=== PATIENT | female | born 1980 | race Caucasian/White ===

== ENCOUNTER 2019-10-27 07:27 | Observation (INO) ==
--- NOTE | 2019-10-22 12:14 | XRay Report ---
HISTORY: Preop for cholecystectomy FINDINGS: The lungs are clear. The heart, mediastinum, juan and pleura are normal. IMPRESSION: Normal chest. Interpreted and Authenticated by: Tapan Blanton 10/22/19
[2019-10-22 13:41] LABS: Basophils # (Auto) 0.06 K/mcL (0.00-0.30); Basophils % (Auto) 0.7 % (0.0-2.0); Eosinophils # (Auto) 0.08 K/mcL (0.00-0.70); Eosinophils % (Auto) 0.9 % (0.0-7.0); Granulocytes % (Auto) 44.8 % (38.0-78.0); Hematocrit 35.7 % (34.1-44.9); Hemoglobin 11.9 g/dL (11.2-15.7); Lymphocytes # (Auto) 3.77 K/mcL (1.50-4.80); Mean Cell Volume 93.2 fL (80.0-100.0); Mean Corpuscular HGB Conc 33.3 g/dL (31.0-36.0); Monocytes # (Auto) 1.16 K/mcL (0.10-0.90); Monocytes % (Auto) 12.6 % (1.0-12.0); Platelet Count 354 K/mcL (140-440); RBC 3.83 M/mcL (3.59-5.38); Red Cell Distribution Width 14.3 % (11.5-14.5); WBC 9.2 K/mcL (4.50-11.00)
[2019-10-22 13:45] LABS: ALT/SGPT 87 U/l (0-40); AST/SGOT 49 U/l (0-37); Albumin/Globulin Ratio 1.1 (1.0-2.3); Alkaline Phosphatase 210 U/L (39-117); Bilirubin,Total 0.8 mg/dL (0.0-1.0); Blood Urea Nitrogen 9 mg/dl (6-20); Calcium 8.2 mg/dl (8.6-10.4); Carbon Dioxide 25 mmol/L (22-30); Globulin 2.7 gm/dL (2.2-3.7); Glomerular Filtration Rate 108; Glucose 93 mg/dL (70-105)
[2019-10-22 13:51] LABS: Chloride 92 mmol/L (96-108)
[2019-10-22 13:53] LABS: INR 1.6 (0.9-1.1); Prothrombin Time 19.5 sec (11.9-14.5)
[~2019-10-27 07:27] MED LIST: ceFAZolin 2 GM in DEXTROSE 5% IN WATER 50 ML IV SCH
[2019-10-27] MEDS ORDERED: KETAMINE 100 MG/ML ML IV ONE (09:20)
[2019-10-27] MEDS ORDERED: METOPROLOL TARTRATE 5 MG/5 ML VIAL IV ONE (09:20)
[2019-10-27] MEDS ORDERED: VERAPAMIL 2.5 MG/ML VIAL IV ONE (09:20)
[2019-10-27] MEDS ORDERED: fentaNYL 250 MCG/5 ML VIAL IV ONE (09:20)
[2019-10-27] MEDS ORDERED: LIDOCAINE HCL/PF 100 MG/5 ML SYRINGE IV ONE (09:20)
[2019-10-27] MEDS ORDERED: DEXAMETHASONE 10 MG/ML VIAL IV ONE (09:20)
[2019-10-27] MEDS ORDERED: ONDANSETRON 4 MG/2 ML VIAL IV ONE (09:20)
[2019-10-27] MEDS ORDERED: SUGAMMADEX SODIUM 200 MG/2 ML VIAL IV ONE (09:20)
[2019-10-27] MEDS ORDERED: PROPOFOL 200 MG/20 ML VIAL IV ONE (09:20)
[2019-10-27] MEDS ORDERED: KETOROLAC 30 MG/ML VIAL IV PRN (09:57)
[2019-10-27] MEDS ORDERED: diphenhydrAMINE 50 MG/ML VIAL IV PRN (09:57)
[2019-10-27] MEDS ORDERED: LACTATED RINGERS 250 ML IV PRN (09:57)
[2019-10-27] MEDS ORDERED: ONDANSETRON 4 MG/2 ML VIAL IV PRN (09:57)
[2019-10-27] MEDS ORDERED: HYDROmorphone 0.5 MG/0.5 ML SYRINGE IV PRN (09:57)
[2019-10-27] MEDS ORDERED: IPRATROPIUM/ALBUTEROL 3 ML AMPUL.NEB NEB PRN (09:57)
[2019-10-27] MEDS ORDERED: MEPERIDINE 25 MG/ML SYRINGE IV PRN (09:57)
[2019-10-27] MEDS ORDERED: PROMETHAZINE 25 MG/ML VIAL IV PRN (09:57)
[2019-10-27] MEDS ORDERED: NALOXONE HCL 0.4 MG/ML VIAL IV PRN (09:57)
[2019-10-27] MEDS ORDERED: LORazepam 2 MG/ML VIAL IV PRN (09:57)
[2019-10-27] MEDS ORDERED: LACTATED RINGERS 1,000 ML IV SCH (10:00)
--- NOTE | 2019-10-27 10:24 | Brief Operative Note ---
Brief Operative Note Date of procedure: 10/27/19 Pre-op diagnosis: cholelithiasis with cholecystitis Post-op diagnosis: other (cholelithiasis with cholecystitis) Procedure: laparoscopic cholecystectomy Grafts/Implants: No Anesthesia: GETA Findings: edematous gallbladder with adhesions and cirrhotic liver disease Complications: none Surgeon: Pelon De Estimated blood loss (cc): 15 Specimens Removed/Pathology: other (gallbladder) Condition: stable Disposition: PACU
[2019-10-27] MEDS ORDERED: ZOLPIDEM 5 MG TABLET PO PRN (10:42)
[2019-10-27] MEDS ORDERED: ALBUTEROL SULFATE 200 PUFF INHALER INH PRN (10:42)
[2019-10-27] MEDS ORDERED: HYDROmorphone 1 MG/ML SYRINGE IV PRN (11:01)
[2019-10-27] MEDS: fentaNYL 100 MCG/2 ML VIAL IV PRN ×2 (11:12→11:14)
[2019-10-27] MEDS: 0.9 % SODIUM CHLORIDE 1,000 ML IV SCH (12:18)
[2019-10-27] MEDS: oxyCODONE HCL 5 MG TABLET PO PRN ×3 (12:37→20:45)
[2019-10-27] MEDS: NICOTINE 21 MG PATCH TOPICAL SCH (12:46)
[2019-10-27] MEDS: POTASSIUM CHLORIDE 20 MEQ TABLET PO SCH (12:46)
[2019-10-27] MEDS ORDERED: METOPROLOL TARTRATE 25 MG TABLET PO ONE (13:14)
[2019-10-27] MEDS: PREGABALIN 75 MG CAPSULE PO SCH ×2 (13:49→20:45)
[2019-10-27] MEDS: clonazePAM 1 MG TABLET PO SCH ×2 (13:49→20:45)
[2019-10-27] MEDS: 0.9 % SODIUM CHLORIDE 10 ML SYRINGE IV SCH ×2 (13:50→21:23)
[2019-10-27] MEDS: OXYBUTYNIN CHLORIDE 5 MG TABLET PO SCH ×2 (13:50→20:45)
[2019-10-27] MEDS ORDERED: METOPROLOL IV PRN (14:28)
[2019-10-27] MEDS: FUROSEMIDE 20 MG TABLET PO SCH (15:21)
[2019-10-27] MEDS: METOPROLOL TARTRATE 5 MG/5 ML VIAL IV PRN (16:04)
[2019-10-27] MEDS: metFORMIN 500 MG TABLET PO SCH (16:55)
[2019-10-27] MEDS ORDERED: 0.9 % SODIUM CHLORIDE 1,000 ML IV PRN (17:22)
[2019-10-27 18:54] LABS: Appearance,Urine CLEAR; Bacteria,Urine FEW /hpf (0); Bilirubin,Urine NEG (NEG); Color,Urine AMBER; Culture Indicated,Urine YES; Glucose,Urine (UA) NEGATIVE (NEG); Ketones,Urine NEG (NEG); Leukocyte Esterase,Urine 250 /uL (NEG); Mucus,Urine FEW /hpf (0); Nitrate,Urine POS (NEG); Protein,Urine 30 mg/dL (NEG); Specific Gravity,Urine 1.029 (1.000-1.035); Urine Blood 0.03 mg/dL (<0.03); Urine Hyaline Cast 6 /lpf (0-2); Urine RBC 3 /hpf (0-1); Urine Squamous Epithelial Cell < 1 /hpf (0-4); Urine WBC 95 /hpf (0-4)
[2019-10-27] MEDS: METOPROLOL TARTRATE 25 MG TABLET PO SCH (20:45)
[2019-10-27] MEDS: CYCLOBENZAPRINE 10 MG TABLET PO SCH (20:45)
[2019-10-27] MEDS: DULoxetine 30 MG CAPSULE PO SCH (20:45)
[2019-10-27] MEDS: BISACODYL 5 MG TABLET PO SCH (20:45)
[2019-10-27] MEDS: PIPERACILLIN SODIUM/TAZOBACTAM 3.375 GM in DEXTROSE 5% IN WATER 50 ML IV SCH (21:32)
[2019-10-28] MEDS: PIPERACILLIN SODIUM/TAZOBACTAM 3.375 GM in DEXTROSE 5% IN WATER 50 ML IV SCH ×3 (01:08→15:51)
[2019-10-28] MEDS: oxyCODONE HCL 5 MG TABLET PO PRN ×5 (01:08→21:09)
[2019-10-28] MEDS: 0.9 % SODIUM CHLORIDE 1,000 ML IV SCH (01:08)
[2019-10-28] MEDS: 0.9 % SODIUM CHLORIDE 10 ML SYRINGE IV SCH ×3 (05:27→21:03)
[2019-10-28] MEDS: METOPROLOL TARTRATE 5 MG/5 ML VIAL IV PRN (07:26)
[2019-10-28] MEDS: OMEPRAZOLE 20 MG CAPSULE PO SCH (07:26)
[2019-10-28] MEDS: metFORMIN 500 MG TABLET PO SCH ×2 (08:29→16:52)
[2019-10-28] MEDS: PREGABALIN 75 MG CAPSULE PO SCH ×3 (08:30→21:02)
[2019-10-28] MEDS: NICOTINE 21 MG PATCH TOPICAL SCH (08:30)
[2019-10-28] MEDS: DULoxetine 30 MG CAPSULE PO SCH ×2 (08:30→21:02)
[2019-10-28] MEDS: OXYBUTYNIN CHLORIDE 5 MG TABLET PO SCH ×3 (08:31→21:02)
[2019-10-28] MEDS: BISACODYL 5 MG TABLET PO SCH ×2 (08:31→21:02)
[2019-10-28] MEDS: TOPIRAMATE 25 MG TABLET PO SCH (08:31)
[2019-10-28] MEDS: FUROSEMIDE 20 MG TABLET PO SCH ×2 (08:32→16:42)
[2019-10-28] MEDS: METOPROLOL TARTRATE 25 MG TABLET PO SCH ×2 (08:32→21:02)
[2019-10-28] MEDS: clonazePAM 1 MG TABLET PO SCH ×3 (08:32→21:02)
[2019-10-28] MEDS: buPROPion 150 MG TAB.XL.24H PO SCH (08:32)
[2019-10-28 10:06] LABS: Basophils # (Auto) 0.02 K/mcL (0.00-0.30); Basophils % (Auto) 0.2 % (0.0-2.0); Eosinophils # (Auto) 0 K/mcL (0.00-0.70); Eosinophils % (Auto) 0 % (0.0-7.0); Granulocytes % (Auto) 61.7 % (38.0-78.0); Hemoglobin 10.4 g/dL (11.2-15.7); Lymphocytes # (Auto) 2.27 K/mcL (1.50-4.80); Lymphocytes % (Auto) 22.1 % (15.5-49.0); Mean Cell Volume 94.5 fL (80.0-100.0); Mean Corpuscular HGB Conc 33.5 g/dL (31.0-36.0); Mean Platelet Volume 10.8 fL (7.4-10.4); Monocytes # (Auto) 1.64 K/mcL (0.10-0.90); Platelet Count 281 K/mcL (140-440); RBC 3.28 M/mcL (3.59-5.38); WBC 10.3 K/mcL (4.50-11.00)
[2019-10-28 11:09] LABS: ALT/SGPT 72 U/l (0-40); AST/SGOT 61 U/l (0-37); Albumin 2.8 gm/dL (3.2-5.2); Albumin/Globulin Ratio 1.2 (1.0-2.3); Alkaline Phosphatase 161 U/L (39-117); Bilirubin,Direct 0.6 mg/dL (0.0-0.3); Bilirubin,Total 1.2 mg/dL (0.0-1.0); Blood Urea Nitrogen 12 mg/dl (6-20); Calcium 7.4 mg/dl (8.6-10.4); Carbon Dioxide 20 mmol/L (22-30); Chloride 95 mmol/L (96-108); Globulin 2.4 gm/dL (2.2-3.7); Glomerular Filtration Rate 108; Glucose 111 mg/dL (70-105); Lactate Dehydrogenase 833 U/L (94-250); Phosphorous 3.6 mg/dL (2.7-4.5); Triglycerides 276 mg/dl (<150); Uric Acid 7.1 mg/dL (2.5-8.0)
[2019-10-28] MEDS: FLUCONAZOLE 100 MG TABLET PO SCH (12:41)
--- NOTE | 2019-10-28 12:51 | Surgical Pathology Report ---
HISTOLOGY SPECIMEN MICROSCOPIC DIAGNOSIS GALLBLADDER, CHOLECYSTECTOMY: -- CHRONIC CHOLECYSTITIS. (ACP:adj) CLINICAL HISTORY Abdominal pain; bloating. PROCEDURAL IMPRESSION Cholelithiasis with chronic cholecystitis. GROSS DESCRIPTION Received in formalin labeled gallbladder, is a 7 x 3.1 x 2.5 cm pink-deng gallbladder. The serosal surface is smooth and glistening. There are multiple metal clips present and the cystic duct is stapled closed. The lumen contains viscous yellow-brown fluid and a minimal amount of black sludge-like material. The mucosa is red-deng to dark green and velvety. The wall is up to 0.1 cm thick. No stones or gross lesions are identified. Dietetic Tech sections submitted in one cassette. (STS:sln) Electronically Signed by: Pavel Blanton M.D.
--- NOTE | 2019-10-28 15:36 | General Surgery Progress Note ---
SUBJECTIVE Subjective Patient information: Note initiated : 10/28/19 at 3:29 pm Service Date, if different from initiated Date: [] Patient: Ruth Hurt 39 y/o F admitted on for Laparoscopic Cholecystectomy. Chief Complaint: [] Principal diagnosis: cholelithiasis with cholecystitis; cirrhotic liver disease Interval history: patient states that she feels better. She had well-controlled heart rate through most of the night but became more tachycardic as her degree of agitation increased. She has not had any nausea vomiting. She has been afebrile. White blood count 10.3, hemoglobin 10.4, hematocrit 31, BUN 12, crea tinine 0.9. Her incisions are unremarkable Constitutional Vitals: Vital Signs Temp Pulse Resp BP Pulse Ox 96.7 F L 90 18 107/71 96 10/28/19 12:00 10/28/19 01:08 10/28/19 12:00 10/28/19 12:00 10/28/19 12:00 Period Temp Pulse Resp BP Sys/Valderrama Pulse Ox Last 24 Hr 96.7 F-98.9 F 60-145 18-18 80-122/40-99 95-97 Intake and Output 10/28/19 10/28/19 10/28/19 05:59 13:59 21:59 Intake Total 1062 1206 480 Output Total 500 Balance 562 1206 480 Intake & Output: Intake & Output 10/28/19 10/28/19 10/28/19 05:59 13:59 21:59 Intake Total 1062 1206 480 Output Total 500 Balance 562 1206 480 Intake: IV 1062 606 Sodium Chloride 0.9% 1,000 ml @ 962 556 75 mls/hr IV .[id number] ERINN Rx#: [id number] Zosyn 3.375 gm In Dextrose 5% 100 50 in Water 50 ml @ 100 mls/hr IV Q6H ERINN Rx#:[id number] Oral 600 480 Output: Urine Catheter Amount 500 Other: Meal Breakfast Lunch Percent of Meal Consumed 75% Urine Color Straight Dark Yellow Head Head exam: Present atraumatic, normal inspection and normocephalic Eye Eye exam: Present EOMI and PERRL; Absent scleral icterus ENT ENT exam: Present mucous membranes moist and normal oropharynx Neck Neck exam: Absent lymphadenopathy and thyromegaly Respiratory Respiratory exam: Present normal respiratory exam and CTAB; Absent rales, rhonchi and wheezes Cardiovascular Cardiovascular exam: Present normal rate and rhythm, RRR, +S1 and +S2 GI/Abdominal GI/Abdominal exam: Present normal bowel sounds, distended and tenderness (mild tenderness in port sites) Extremities Exam Extremities exam: Present pedal edema (3+ pedal edema) and neurovascular intact Back Exam Back exam: Present normal inspection and tenderness Neurological Exam Neurological exam: Present CN II-XII intact, motor sensory deficit, normal gait, oriented X3 and reflexes normal Psychiatric Psychiatric exam: Present anxious, depressed, normal affect and normal mood Skin Skin exam: Present cyanosis A/P Assessment and plan (1) Cholelithiasis with chronic cholecystitis: Status: Acute Qualifiers: Cholelithiasis location: gallbladder Biliary obstruction: without biliary obstruction Qualified Code(s): K80.10 - Calculus of gallbladder with chronic cholecystitis without obstruction (2) Atrial fibrillation with RVR: Status: Acute (3) History of alcoholism: Status: Chronic (4) Peripheral neuropathy: Status: Chronic Qualifiers: Peripheral neuropathy type: polyneuropathy, unspecified Qualified Code(s): G62.9 - Polyneuropathy, unspecified Narrative A/P Narrative: continue present medications Start cefuroxime 500 mg twice daily Discharge tomorrow. Time Spent With Patient Time: Total time spent is greater than 50% in coordination of care (as documented) at patient's floor/unit and/or counseling patient:
--- NOTE | 2019-10-28 16:31 | General Surgery Progress Note ---
SUBJECTIVE Subjective Patient information: Note initiated : 10/28/19 at 4:29 pm Service Date, if different from initiated Date: [] Patient: Ruth Hurt 39 y/o F admitted on for Laparoscopic Cholecystectomy. Chief Complaint: [] Principal diagnosis: cholelithiasis with cholecystitis; cirrhotic liver disease Interval history: patient states that she feels better. She had relatively controlled heart rate earlier today and last evening however her heart rate has increased during the roll setter. It is significantly increased when she is emotionally distraught. I had a long talk with her concerning her alcohol abuse . Patient's pain is better controlled. Heart rate varies between 110 and 160- 170 with sinus tachycardia with multiple atrial premature contractions. Constitutional Vitals: Vital Signs Temp Pulse Resp BP Pulse Ox 96.7 F L 90 18 107/71 96 10/28/19 12:00 10/28/19 01:08 10/28/19 12:00 10/28/19 12:00 10/28/19 12:00 Period Temp Pulse Resp BP Sys/Valderrama Pulse Ox Last 24 Hr 96.7 F-98.9 F 60-133 18-18 92-122/66-99 95-96 Intake and Output 10/28/19 10/28/19 10/28/19 05:59 13:59 21:59 Intake Total 1062 1206 480 Output Total 500 Balance 562 1206 480 Intake & Output: Intake & Output 10/28/19 10/28/19 10/28/19 05:59 13:59 21:59 Intake Total 1062 1206 480 Output Total 500 Balance 562 1206 480 Intake: IV 1062 606 Sodium Chloride 0.9% 1,000 ml @ 962 556 75 mls/hr IV .[id number] ERINN Rx#: [id number] Zosyn 3.375 gm In Dextrose 5% 100 50 in Water 50 ml @ 100 mls/hr IV Q6H ERINN Rx#:[id number] Oral 600 480 Output: Urine Catheter Amount 500 Other: Meal Breakfast Lunch Percent of Meal Consumed 75% Urine Color Straight Dark Yellow A/P Time Spent With Patient Time: Total time spent is greater than 50% in coordination of care (as vonnie wilkins) at patient's floor/unit and/or counseling patient:
[2019-10-28] MEDS: CEFUROXIME 500 MG TABLET PO SCH (21:02)
[2019-10-28] MEDS: CYCLOBENZAPRINE 10 MG TABLET PO SCH (21:02)
[2019-10-29] MEDS: oxyCODONE HCL 5 MG TABLET PO PRN ×4 (01:16→15:53)
[2019-10-29] MEDS: 0.9 % SODIUM CHLORIDE 10 ML SYRINGE IV SCH ×2 (05:18→14:12)
[2019-10-29] MEDS: OMEPRAZOLE 20 MG CAPSULE PO SCH (06:52)
[2019-10-29] MEDS ORDERED: FLUCONAZOLE 100 MG TABLET PO SCH (09:00)
[2019-10-29] MEDS: FLUCONAZOLE 100 MG TABLET PO SCH (09:30)
[2019-10-29] MEDS: PREGABALIN 75 MG CAPSULE PO SCH ×2 (09:30→15:22)
[2019-10-29] MEDS: CEFUROXIME 500 MG TABLET PO SCH (09:30)
[2019-10-29] MEDS: POTASSIUM CHLORIDE 20 MEQ TABLET PO SCH (09:31)
[2019-10-29] MEDS: FUROSEMIDE 20 MG TABLET PO SCH ×2 (09:31→15:22)
[2019-10-29] MEDS: buPROPion 150 MG TAB.XL.24H PO SCH (09:31)
[2019-10-29] MEDS: OXYBUTYNIN CHLORIDE 5 MG TABLET PO SCH ×2 (09:31→15:22)
[2019-10-29] MEDS: METOPROLOL TARTRATE 25 MG TABLET PO SCH (09:31)
[2019-10-29] MEDS: DULoxetine 30 MG CAPSULE PO SCH (09:31)
[2019-10-29] MEDS: metFORMIN 500 MG TABLET PO SCH (09:31)
[2019-10-29] MEDS: BISACODYL 5 MG TABLET PO SCH (09:31)
[2019-10-29] MEDS: clonazePAM 1 MG TABLET PO SCH ×2 (09:31→15:22)
[2019-10-29] MEDS: TOPIRAMATE 25 MG TABLET PO SCH (09:32)
[2019-10-29] MEDS: NICOTINE 21 MG PATCH TOPICAL SCH (09:59)
--- NOTE | 2019-10-29 14:08 | Discharge Summary ---
Discharge Provider Provider Patient information: Note initiated : 10/29/19 at 2:00 pm Service Date, if different from initiated Date: [] Patient: Ruth Hurt 39 y/o F admitted on for Laparoscopic Cholecystectomy. Chief Complaint: [cholecystitis with cholelithiasis] Date of admission: 10/27/2019 Discharge date: 10/29/19 Primary care physician: ABNER Sarmiento Admitting clinician: Pelon De Attending physician on admission: Pelon De Attending physician on discharge: Pelon De Discharging clinician: Pelon De COURSE Hospital Course Hospital course: 39-year-old female with history of cholelithiasis and cholecystitis. She also had history of chronic alcoholic liver disease. The patient had onset of atrial fibrillation with rapid ventricular response at the time of induction of anesthesia. This was treated accordingly and her blood pressure and pulse stabilized. She underwent cholecystectomy without incident. She was found to have significant cirrhotic liver disease. She developed atrial fibrillation with RVR in the postoperative period. She was restarted on her oral metoprolol and was given supplemental metoprolol. A lot of her tachycardia appeared to be atrial tachycardia with multiple PACs. She would intermittently convert to sinus rhythm in the 80s. Presently her heart rate is in the 80s and she is asymptomatic. The patient was continued on wine during her postoperative stay to prevent withdrawal with delirium tremens. She is clinically stable at this time. It was discussed with her the need to set up follow-up with our flow specialist. We left a message with them to contact her. I will also confirm this follow-up when I see her in the office in 2 weeks. Patient is clinically stable at this time and is discharged home Discharge diagnosis: cholelithiasis with cholecystitis Secondary discharge diagnosis: acute and chronic alcoholism Cirrhotic liver disease Chronic anxiety disorder with depression Posttraumatic stress disorder Time Spent with Patient Time attestation: Total time spent providing and/or coordinating discharge services: Physical Examination Vital Signs Vital signs: Temp Pulse Resp BP Pulse Ox 97.5 F 87 16 110/71 93 10/29/19 11:19 10/29/19 11:19 10/29/19 11:19 10/29/19 07:45 10/29/19 11:19 General physical appearance General physical exam: well developed, well nourished, no distress, moderate pain and chronically ill Eyes Eye exam: PERRL and normal ocular movement; negative icteric ENT ENT exam: normal pinna, normal mucosa and no hearing loss Head Head exam IM: Present atraumatic, normal inspection and normocephalic Neck Neck exam: no masses, no bruits, trachea midline, no lymphadenopathy and no venous distension Cardiovascular Cardiovascular exam IM: Present irregular rhythm (irregularly irregular rhythm), JVD, +S1, +S2 and tachycardia Respiratory Respiratory exam: normal expansion, normal respiratory effort, clear to percussion and clear to auscultation Abdomen Abdomen: Present tender, bowel sounds and wound (port sites are healing uneventfully) Integumentary Integumentary: Present no rash, no growths and no abnormal pigmentation Neurologic Neurologic: Present normal coordination and normal sensation Musculoskeletal Musculoskeletal: Present normal gait and normal posture Psychiatric Psychiatric: Present oriented to time, oriented to person, oriented to place, speech is normal and memory intact Discharge Plan Patient/Caregiver Discharge Instructions Activity: increase activity as tolerated and resume usual activities as tolerated Diet: Regular Diet Instructions: Laparoscopic Cholecystectomy (DC) Activity Restrictions/Additional Instructions: patient is strongly advised to follow-up with our addiction physician with regards to her alcoholism Prescriptions: New cefuroxime axetil 500 mg tablet 500 mg PO BID Qty: 10 RF: 0 oxycodone-acetaminophen [Endocet] 5-325 mg Tablet 1 tab PO Q4H PRN (Reason: Pain) Qty: 30 RF: 0 Continued metoprolol tartrate 25 mg tablet 25 mg PO BID RF: 0 omeprazole 20 mg capsule,delayed release(DR/EC) 20 mg PO DAILY RF: 0 Lyrica 75 mg capsule 150 mg PO TID RF: 0 furosemide [Lasix] 20 mg tablet 20 mg PO BID RF: 0 bupropion HCl 300 mg tablet extended release 24 hr 150 mg PO QAM RF: 0 medroxyprogesterone 5 mg tablet 5 mg PO QDAY RF: 0 topiramate 50 mg capsule,extended release 24hr 50 mg PO QDAY RF: 0 estradiol 2 mg tablet 2 mg PO QDAY RF: 0 oxybutynin chloride 5 mg tablet 5 mg PO TID RF: 0 Eliquis 5 mg tablet 5 mg PO BID RF: 0 metformin 500 mg tablet 500 mg PO BID RF: 0 bisacodyl 5 mg tablet 5 mg PO BID RF: 0 zolpidem 5 mg tablet 5 mg PO QHS PRN (Reason: Insomnia) RF: 0 potassium chloride 20 mEq tablet,ER particles/crystals 20 meq PO .MWF RF: 0 clonazepam 1 mg tablet 1 mg PO TID RF: 0 cyclobenzaprine 10 mg tablet 10 mg PO HS RF: 0 duloxetine 30 mg capsule,delayed release(DR/EC) 30 mg PO BID RF: 0 albuterol sulfate [ProAir HFA] 90 mcg/actuation Hfa Aerosol Inhaler 2 puff INHALATION Q6H PRN (Reason: Shortness Of Breath) RF: 0 Amitiza 24 mcg capsule 24 mcg PO BIDCC RF: 0 Follow Up Plan Follow up with: Natasha Mcdonnell DO [Physician] - (Please call and scheduled an appointment.) Pelon De MD [Physician] - 11/08/19 11:45 am Patient Disposition: Home, Self-Care Prognosis: Fair Rehab Potential: Fair I certify that the patient requires SNF services: No Overall status at discharge: patient is progressing back to baseline Discharge Orders: Discharge Order (Routine); Ordered 10/29/19 Ordered By: Pelon De Pending Pending Pending: Resuscitation Status Full Code Diet Regular Diet Start FriOct 28 1815 Bisacodyl (Dulcolax) 5 mg PO BID ON LICENSE OF [facility] Last Admin: 10/29/19 09:31 Dose: 5 mg Documented by: Admin: 10/28/19 21:02 Dose: 5 mg Documented by: Admin: 10/28/19 08:31 Dose: 5 mg Documented by: Admin: 10/27/19 20:45 Dose: 5 mg Documented by: VIANNEY Bupropion HCl (Wellbutrin Xl) 150 mg PO DAILY ON LICENSE OF [facility] Last Admin: 10/29/19 09:31 Dose: 150 mg Documented by: Admin: 10/28/19 08:32 Dose: 150 mg Documented by: PHOEBE Cefuroxime Axetil (Ceftin) 500 mg PO Q12 ON LICENSE OF [facility]; Protocol Last Admin: 10/29/19 09:30 Dose: 500 mg Documented by: Admin: 10/28/19 21:02 Dose: 500 mg Documented by: VIANNEY Clonazepam (Klonopin) 1 mg PO TID ON LICENSE OF [facility] Last Admin: 10/29/19 09:31 Dose: 1 mg Documented by: Admin: 10/28/19 21:02 Dose: 1 mg Documented by: Admin: 10/28/19 16:42 Dose: 1 mg Documented by: Admin: 10/28/19 08:32 Dose: 1 mg Documented by: Admin: 10/27/19 20:45 Dose: 1 mg Documented by: Admin: 10/27/19 13:49 Dose: 1 mg Documented by: MIRA Cyclobenzaprine HCl (Flexeril) 10 mg PO HS ON LICENSE OF [facility] Last Admin: 10/28/19 21:02 Dose: 10 mg Documented by: Admin: 10/27/19 20:45 Dose: 10 mg Documented by: VIANNEY Duloxetine HCl (Cymbalta) 30 mg PO BID ON LICENSE OF [facility] Last Admin: 10/29/19 09:31 Dose: 30 mg Documented by: Admin: 10/28/19 21:02 Dose: 30 mg Documented by: Admin: 10/28/19 08:30 Dose: 30 mg Documented by: Admin: 10/27/19 20:45 Dose: 30 mg Documented by: VIANNEY Fluconazole (Diflucan) 100 mg PO DAILY ON LICENSE OF [facility]; Protocol Last Admin: 10/29/19 09:30 Dose: 100 mg Documented by: Admin: 10/28/19 12:41 Dose: 100 mg Documented by: PHOEBE Furosemide (Lasix) 20 mg PO BIDD ON LICENSE OF [facility] Last Admin: 10/29/19 09:31 Dose: 20 mg Documented by: Admin: 10/28/19 16:42 Dose: 20 mg Documented by: Admin: 10/28/19 08:32 Dose: 20 mg Documented by: Admin: 10/27/19 15:21 Dose: 20 mg Documented by: MIRA Metformin HCl (Glucophage) 500 mg PO BIDCC ON LICENSE OF [facility] Last Admin: 10/29/19 09:31 Dose: 500 mg Documented by: Admin: 10/28/19 16:52 Dose: Not Given Documented by: Admin: 10/28/19 08:29 Dose: Not Given Documented by: Admin: 10/27/19 16:55 Dose: Not Given Documented by: MIRA Metoprolol Tartrate (Lopressor) 25 mg PO BID ON LICENSE OF [facility] Last Admin: 10/29/19 09:31 Dose: 25 mg Documented by: Admin: 10/28/19 21:02 Dose: 25 mg Documented by: Admin: 10/28/19 08:32 Dose: 25 mg Documented by: Admin: 10/27/19 20:45 Dose: 25 mg Documented by: VIANNEY Metoprolol Tartrate (Lopressor) 5 mg IV Q4HP PRN PRN Reason: Tachyarrhythmias Last Admin: 10/28/19 07:26 Dose: 5 mg Documented by: Admin: 10/27/19 16:04 Dose: 5 mg Documented by: MIRA Nicotine (Nicoderm) 21 mg TOPICAL DAILY@1000 ON LICENSE OF [facility] Last Admin: 10/29/19 09:59 Dose: 21 mg Documented by: Admin: 10/28/19 08:30 Dose: 21 mg Documented by: Admin: 10/27/19 12:46 Dose: 21 mg Documented by: MIRA Omeprazole (Prilosec) 20 mg PO ACB ON LICENSE OF [facility] Last Admin: 10/29/19 06:52 Dose: 20 mg Documented by: Admin: 10/28/19 07:26 Dose: 20 mg Documented by: PHOEBE Oxybutynin Chloride (Ditropan) 5 mg PO TID ON LICENSE OF [facility] Last Admin: 10/29/19 09:31 Dose: 5 mg Documented by: Admin: 10/28/19 21:02 Dose: 5 mg Documented by: Admin: 10/28/19 15:07 Dose: Not Given Documented by: Admin: 10/28/19 08:31 Dose: 5 mg Documented by: Admin: 10/27/19 20:45 Dose: 5 mg Documented by: Admin: 10/27/19 13:50 Dose: 5 mg Documented by: MIRA Oxycodone HCl (Roxicodone) 10 mg PO Q4HP PRN; Protocol PRN Reason: Per Pain Protocol Last Admin: 10/29/19 09:37 Dose: 10 mg Documented by: Admin: 10/29/19 05:17 Dose: 10 mg Documented by: Admin: 10/29/19 01:16 Dose: 10 mg Documented by: Admin: 10/28/19 21:09 Dose: 10 mg Documented by: Admin: 10/28/19 16:42 Dose: 10 mg Documented by: Admin: 10/28/19 09:38 Dose: 10 mg Documented by: Admin: 10/28/19 05:25 Dose: 10 mg Documented by: Admin: 10/28/19 01:08 Dose: 10 mg Documented by: Admin: 10/27/19 20:45 Dose: 10 mg Documented by: Admin: 10/27/19 16:41 Dose: 10 mg Documented by: Admin: 10/27/19 12:37 Dose: 10 mg Documented by: MIRA Potassium Chloride (Kdur) 20 meq PO [id number] [facility] Admin: 10/29/19 09:31 Dose: 20 meq Documented by: Admin: 10/27/19 12:46 Dose: 20 meq Documented by: MIRA Pregabalin (Lyrica) 150 mg PO TID [facility] Admin: 10/29/19 09:30 Dose: 150 mg Documented by: Admin: 10/28/19 21:02 Dose: 150 mg Documented by: Admin: 10/28/19 16:41 Dose: 150 mg Documented by: Admin: 10/28/19 08:30 Dose: 150 mg Documented by: Admin: 10/27/19 20:45 Dose: 150 mg Documented by: Admin: 10/27/19 13:49 Dose: 150 mg Documented by: MIRA Sodium Chloride (Saline Flush) 10 ml IV Q8 ON LICENSE OF [facility] Last Admin: 10/29/19 05:18 Dose: 10 ml Documented by: Admin: 10/28/19 21:03 Dose: 10 ml Documented by: Admin: 10/28/19 12:50 Dose: 10 ml Documented by: Admin: 10/28/19 05:27 Dose: Not Given Documented by: Admin: 10/27/19 21:23 Dose: Not Given Documented by: Admin: 10/27/19 13:50 Dose: 10 ml Documented by: MIRA Topiramate (Topamax) 50 mg PO DAILY ERINN Last Admin: 10/29/19 09:32 Dose: 50 mg Documented by: Admin: 10/28/19 08:31 Dose: 50 mg Documented by: PHOEBE Zolpidem Tartrate (Ambien) 5 mg PO HSP PRN PRN Reason: Insomnia Last Admin: 10/28/19 21:02 Dose: 5 mg Documented by: VIANNEY Shift Summary 10/29/19 03:36 Shift Summary by Katerine Beltranx4 but can be very forgetfull. Patient has been in and out of NSR and AFib RVR since surgery. 5mg of IV lopressor if HR gets > 120. Patient started on PO antibiotics yesterday for urinary tract infection and Pt started on daily diflucan for vaginal yeast infection. Pt states that she only voids once a day. Was straight cath the previous night and did not urinate during the day and was complaining of feeling pressure and needing to urinate but couldn't. Tonight Bladder scanned for 547 ml and straight cath for 700 out of dark urine with what looked like some red specks of dried blood in it. Patient receives oxycodone Q4H PRN which she likes to get when it is available. Patient can be tearful and has a lot of anxiety. Will update at bedside. Initialized on 10/29/19 03:36 - END OF NOTE
--- NOTE | 2019-11-01 10:40 | Operative Note ---
DATE OF OPERATION: 10/28/2019 DATE OF PROCEDURE: 10/27/2019 PREOPERATIVE DIAGNOSIS: Cholelithiasis with cholecystitis. POSTOPERATIVE DIAGNOSIS: Cholelithiasis with cholecystitis. PROCEDURE: Laparoscopic cholecystectomy. SURGEON: Pelon De M.D. FINDINGS: Edematous gallbladder with adhesions and cirrhotic liver disease. DESCRIPTION OF PROCEDURE: Under general anesthesia, the patient's abdomen was prepped and draped in a sterile field. Time-out procedure was carried out as per protocol. A supraumbilical midline incision was made and Veress needle was inserted. It was interesting that once the incision was made, there was oozing of clear fluid from the subcutaneous fat and the subcutaneous fat appeared to be edematous. A Veress needle was inserted and the abdomen insufflated with 2 liters of CO2. A 12 mm port was placed. Laparoscope was placed. The liver was very nodular and had a deep, almost yellow-orange color suggesting severe fatty infiltration and cirrhosis. There was a small amount apparent ascites. There were adhesions to the gallbladder. Under videoscopic guidance, a 12 mm port and two 5 mm ports were placed in the right subcostal region. The gallbladder was grasped and positioned. Acute adhesions to the gallbladder were taken down using blunt dissection and electrocautery. The gallbladder was further positioned. Cystic duct was dissected back to the gallbladder. Cystic artery was dissected to the wall of the gallbladder. Cystic duct was divided at its junction with the gallbladder using Endo-ALIYAH stapler. Cystic artery was clipped with five clips and divided. The gallbladder was from the intrahepatic bed using electrocautery. There was major edema in the fibrous attachments between the gallbladder and the liver. The gallbladder was placed in an Endopouch and retrieved. Irrigation was carried out. There was no bile leak. There was no bleeding. The gallbladder was placed in an Endopouch and retrieved. CO2 was allowed to escape from the abdomen and the ports were removed. Fascia at the umbilicus was closed with interrupted 0 Vicryl. Subcutaneous tissue was closed with 0 Vicryl. Skin incisions were closed with nhan. Tegaderm dressings were placed. The patient was awakened, transferred to a bed and taken to the postanesthetic care unit in satisfactory condition. LCS:slime Job ID: [id number] Doc ID: [id number] Pelon De M.D.
== END 2019-10-29 16:00 | disposition home or self-care (01) ==
LOC: SUR 07:27 → MEDSUR 07:27
PROVIDERS: ADMIT Family Medicine Adult Medicine; ATTEND Family Medicine Adult Medicine